=== PATIENT | male | born 1970 | race American Indian/Alaskan Native ===

== ENCOUNTER 2019-07-29 14:12 | Emergency (ER) | payer SELFPAY ==
--- NOTE | 2019-07-29 14:16 | Emergency Department Report ---
Blank Doc - Documentation Documentation: 49-year-old male that presents with penile erection x5 hours. This initial assessment/diagnostic orders/clinical plan/treatment(s) is/are subject to change based on patient's health status, clinical progression and re- assessment by fellow clinical providers in the ED. Further treatment and workup at subsequent clinical providers discretion. Patient/guardians urged not to elope from the ED as their condition may be serious if not clinically assessed and managed. Initial orders include: 1- Patient sent to MAIN for further evaluation and treatment
[2019-07-29] MEDS ORDERED: SODIUM CHLORIDE 0.9% 1000 ML 1,000 ML IV ONE (15:19)
[2019-07-29] MEDS ORDERED: MORPHINE 4 MG/1 ML INJ ONE (15:38)
[2019-07-29] MEDS ORDERED: MORPHINE 4 MG/1 ML INJ IV ONE (15:40)
[2019-07-29] MEDS ORDERED: PSEUDOEPHEDRINE 30 MG TAB PO ONE (16:17)
[2019-07-29] MEDS ORDERED: PHENYLEPHRINE 1 MG, SODIUM CHLORIDE P/F VIAL 10 ML 9.9 ML IJ**NOT IV ONE (16:18)
--- NOTE | 2019-07-29 16:55 | Emergency Department Report ---
ED General Adult HPI - General Chief complaint: Urogenital-Male Stated complaint: PRIAPISM Time Seen by Provider: 07/29/19 14:15 Source: patient Mode of arrival: Ambulatory Limitations: No Limitations - History of Present Illness Initial comments: The patient presents to the emergency department with a chief complaint of priapism after taking over the counter supplement from a local store. Patient states his symptoms started at 10 AM. The patient denies a history of sickle cell anemia or ever having priapism before -: Sudden Severity scale (0 -10): 8 Consistency: constant Improves with: none Worsens with: none Associated Symptoms: denies other symptoms Treatments Prior to Arrival: none - Related Data Home Medications Medication Instructions Recorded Confirmed Last Taken No Known Home Medications [No 07/29/19 07/29/19 Unknown Reported Home Medications] Allergies Allergy/AdvReac Type Severity Reaction Status Date / Time No Known Allergies Allergy Unverified 06/08/14 10:29 ED Review of Systems ROS: Stated complaint: PRIAPISM Other details as noted in HPI Constitutional: denies: chills, fever Eyes: denies: eye pain, eye discharge, vision change ENT: denies: ear pain, throat pain Respiratory: denies: cough, shortness of breath, wheezing Cardiovascular: denies: chest pain, palpitations Endocrine: no symptoms reported Gastrointestinal: denies: abdominal pain, nausea, diarrhea Genitourinary: denies: urgency, dysuria Musculoskeletal: denies: back pain, joint swelling, arthralgia Skin: denies: rash, lesions Neurological: denies: headache, weakness, paresthesias Psychiatric: denies: anxiety, depression Hematological/Lymphatic: denies: easy bleeding, easy bruising ED Past Medical Hx - Past Medical History Previous Medical History?: No - Surgical History Past Surgical History?: No - Social History Smoking Status: Current Every Day Smoker Substance Use Type: Alcohol - Medications Home Medications: Home Medications Medication Instructions Recorded Confirmed Last Taken Type No Known Home Medications [No 07/29/19 07/29/19 Unknown History Reported Home Medications] ED Physical Exam - General Limitations: No Limitations General appearance: alert, in no apparent distress - Head Head exam: Present: atraumatic, normocephalic - Eye Eye exam: Present: normal appearance, PERRL, EOMI - ENT ENT exam: Present: mucous membranes moist - Neck Neck exam: Present: normal inspection - Respiratory Respiratory exam: Present: normal lung sounds bilaterally. Absent: respiratory distress - Cardiovascular Cardiovascular Exam: Present: regular rate, normal rhythm. Absent: systolic murmur, diastolic murmur, rubs, gallop - GI/Abdominal GI/Abdominal exam: Present: soft, normal bowel sounds. Absent: distended, tenderness - Rectal Rectal exam: Present: deferred - exam: Present: other (priapism) - Extremities Exam Extremities exam: Present: normal inspection - Back Exam Back exam: Present: normal inspection - Neurological Exam Neurological exam: Present: alert, oriented X3, CN II-XII intact. Absent: motor sensory deficit - Psychiatric Psychiatric exam: Present: normal affect, normal mood - Skin Skin exam: Present: warm, dry, intact, normal color. Absent: rash ED Course Vital Signs 07/29/19 07/29/19 07/29/19 14:16 14:36 14:37 Temperature 98.5 F 98.2 F Pulse Rate 81 86 Respiratory 20 14 14 Rate Blood Pressure 158/93 145/95 [Right] O2 Sat by Pulse 99 100 98 Oximetry 07/29/19 16:15 Temperature Pulse Rate Respiratory Rate Blood Pressure 160/98 [Right] O2 Sat by Pulse Oximetry - Penile Procedure Consent Obtained: verbal consent Time Out Performed: Yes Indication: priapism management Procedural Sedation: No Sedation/Analgesia: none Priapism Management: phenylephrine injection Complications: none Patient Tolerated Procedure: well Additional Comments: Complete resolution of priapism Critical care attestation.: If time is entered above; I have spent that time in minutes in the direct care of this critically ill patient, excluding procedure time. ED Disposition Clinical Impression: Priapism Disposition: - TO HOME OR SELFCARE Is pt being admited?: No Does the pt Need Aspirin: No Condition: Stable Instructions: Priapism (ED) Additional Instructions: return if worse Referrals: CANDIDO ANDERSON MD [Primary Care Provider] - 3-5 Days [facility] [Provider Group] - 3-5 Days [facility] [Provider Group] - 3-5 Days JAIME GONZALEZ MD [Staff Physician] - 3-5 Days Time of Disposition: 17:27
[2019-07-29 16:59] VITALS: BP 160/98
== END 2019-07-29 17:53 | disposition home or self-care (01) ==
LOC: ED 14:12
DX: N48.30 Priapism, unspecified (principal); F17.200 Nicotine dependence, unspecified, uncomplicated
CPT/HCPCS: 54220; 96374; 99282; J2270; J2370; J7030

== ENCOUNTER 2021-12-06 21:42 | Inpatient (IN) | payer SELFPAY ==
[2021-12-06] MEDS ORDERED: ASPIRIN 325 MG TAB PO ONE (22:17)
--- NOTE | 2021-12-06 22:31 | Emergency Department Report ---
<OMAIRA SUTTON - Last Filed: 12/06/21 22:26> ED Chest Pain HPI - General Chief Complaint: Chest Pain Stated Complaint: CHEST PAIN Time Seen by Provider: 12/06/21 22:08 Source: patient Mode of arrival: Ambulatory Limitations: No Limitations - History of Present Illness Initial Comments: 51-year-old -[place] male smoker presents emerged department complaining of sudden onset of substernal chest discomfort of unknown etiology while he was sitting on the couch reading in no acute distress. Reports no hemoptysis or hematemesis medic easy, no fever, chills, sweats. No coughing, no congestion, no coryza, no trauma no previous symptoms resembling this issue MD Complaint: chest pain -: Sudden, minutes(s) (30) Onset: during rest Pain Location: substernal Pain Radiation: none Severity: mild Quality: aching, sharp Consistency: constant Improves With: nothing Worsens With: nothing re: denies: nausea, vomting, diaphoresis, dyspnea, sense of impending doom Other Symptoms: denies: cough, fever, syncope, rash, acid taste in mouth, leg swelling, palpitations, burping, other Treatments Prior to Arrival: none - Related Data Previous Rx's Medication Instructions Recorded Last Taken Type amLODIPine [Norvasc] 5 mg PO DAILY #30 tab 12/07/21 Unknown Rx Allergies Allergy/AdvReac Type Severity Reaction Status Date / Time No Known Allergies Allergy Unverified 06/08/14 10:29 Heart Score - HEART Score History: Slightly suspicious EKG: Normal Age: 45-65 Risk factors: > 3 risk factors or hx of atherosclerotic disease Troponin: < normal limit HEART Score: 3 ED Review of Systems Comment: All other systems reviewed and negative ED Past Medical Hx - Social History Smoking Status: Current Every Day Smoker Substance Use Type: Alcohol - Medications Home Medications: Home Medications Medication Instructions Recorded Confirmed Last Taken Type amLODIPine [Norvasc] 5 mg PO DAILY #30 tab 12/07/21 Unknown Rx ED Physical Exam - General Limitations: No Limitations General appearance: alert, in no apparent distress - Head Head exam: Present: atraumatic, normocephalic - Eye Eye exam: Present: normal appearance, PERRL, EOMI. Absent: scleral icterus, conjunctival injection, periorbital swelling, periorbital tenderness Pupils: Present: normal accommodation - ENT ENT exam: Present: normal exam, normal orophraynx, mucous membranes moist, TM's normal bilaterally - Neck Neck exam: Present: normal inspection, full ROM - Respiratory Respiratory exam: Present: normal lung sounds bilaterally. Absent: respiratory distress, wheezes, rales, chest wall tenderness, accessory muscle use - Cardiovascular Cardiovascular Exam: Present: regular rate, normal rhythm. Absent: systolic murmur, diastolic murmur, rubs, gallop - GI/Abdominal GI/Abdominal exam: Present: soft, normal bowel sounds. Absent: tenderness, guarding, rebound, organomegaly, mass, bruit - Rectal Rectal exam: Present: deferred - Extremities Exam Extremities exam: Present: normal inspection, full ROM, normal capillary refill - Back Exam Back exam: Present: normal inspection, CVA tenderness (R), CVA tenderness (L) - Neurological Exam Neurological exam: Present: alert, oriented X3, CN II-XII intact, normal gait - Psychiatric Psychiatric exam: Present: normal affect, normal mood - Skin Skin exam: Present: warm, dry, intact, normal color. Absent: rash ED Disposition Clinical Impression: Malignant hypertension, Non-STEMI (non-ST elevated myocardial infarction) Disposition: ADMITTED INPATIENT Condition: Stable Instructions: Chest Pain (ED), Hypertension (ED) Prescriptions: amLODIPine [Norvasc] 5 mg PO DAILY #30 tab Referrals: AAKSH VERA MD [Primary Care Provider] - 3-5 Days <CHE CHEN - Last Filed: 12/07/21 05:44> Heart Score - HEART Score History: Moderately suspicious EKG: Non-specific Age: 45-65 Risk factors: > 3 risk factors or hx of atherosclerotic disease Troponin: > 3x normal limit HEART Score: 7 - EKG Read Time Time EKG Completed: 21:52 EKG Read Time: 21:55 - Critical Actions Critical Actions: >7 pts:50-65% risk of adverse cardiac event. Early invasive measures ED Review of Systems ROS: Stated complaint: CHEST PAIN Other details as noted in HPI ED Course Vital Signs 12/06/21 12/06/21 12/07/21 22:17 22:57 00:41 Temperature 98.1 F Pulse Rate 87 74 Respiratory 18 20 Rate Blood Pressure 176/121 Blood Pressure 166/109 [Right] O2 Sat by Pulse 99 100 100 Oximetry ED Medical Decision Making - Lab Data Result diagrams: 12/06/21 22:30 12/06/21 22:30 - EKG Data -: EKG Interpreted by Me EKG shows normal: sinus rhythm Rate: normal - EKG Data Interpretation: no acute changes - Radiology Data Radiology results: report reviewed - Medical Decision Making 51-year-old -[place] male smoker presents emerged department complaining of sudden onset of substernal chest discomfort of unknown etiology while he was sitting on the couch reading in no acute distress. Reports no hemoptysis or hematemesis medic easy, no fever, chills, sweats. No coughing, no congestion, no coryza, no trauma no previous symptoms resembling this issue Patient found to have a blood pressure of 180/111. Patient is not on any blood pressure medication. Patient received nitroglycerin and Lopressor. Patient stated that he is feeling much better. Labs reviewed and is unremarkable including a negative first set of troponin however the second troponin came back as 1.48. Chest x-ray is unremarkable. I started patient on Heparin drip. I discussed the patient with Dr. Monge, chrome plater on-call he advised to admit patient to medical service and he will follow up with the patient. I discussed the patient with Dr. Hopkins, he agreed to admit the patient to medical service for further management. Critical Care Time: Yes Critical care time in (mins) excluding proc time.: 35 Critical care attestation.: If time is entered above; I have spent that time in minutes in the direct care of this critically ill patient, excluding procedure time. ED Disposition Is pt being admited?: Yes
[2021-12-06 22:52] LABS: Hematocrit 38.5 % (35.5-45.6); Mean Corpuscular HGB Conc 34 % (32-34); Mean Corpuscular Volume 90 fl (84-94); Platelet Count 274 K/mm3 (140-440); Red Blood Count 4.28 M/mm3 (3.65-5.03); Red Cell Distribution Width 13.9 % (13.2-15.2)
[2021-12-06 23:06] LABS: Alanine Aminotransferase 19 units/L (7-56); Albumin 3.5 g/dL (3.9-5); BUN/Creatinine Ratio 16; Blood Urea Nitrogen 13 mg/dL (9-20); Calcium 8.3 mg/dL (8.4-10.2); Hemolysis Index 4
[2021-12-06] MEDS ORDERED: NITROGLYCERIN 0.4 MG TAB SUBL SL ONE (23:08)
--- NOTE | 2021-12-06 23:15 | XRay Report ---
CHEST 2 VIEWS INDICATION / CLINICAL INFORMATION: Chest Pain. COMPARISON: None available. FINDINGS: SUPPORT DEVICES: None. HEART / MEDIASTINUM: No significant abnormality. LUNGS / PLEURA: No significant pulmonary or pleural abnormality. No pneumothorax. ADDITIONAL FINDINGS: No significant additional findings. IMPRESSION: 1. No active cardiopulmonary disease. Signer Name: Juanjose Mendoza II, MD Signed: 12/06/2021 11:10 PM Workstation Name: [id number]
[2021-12-06] MEDS: NITROGLYCERIN 0.4 MG TAB SUBL SL ONE (23:43)
[2021-12-06] MEDS: METOPROLOL TARTRATE 5 MG/5 ML INJ IV ONE (23:51)
[2021-12-07] MEDS: ONDANSETRON 4 MG/2 ML INJ IV ONE ×2 (01:45→20:01)
[2021-12-07] MEDS: MORPHINE 4 MG/1 ML INJ IV ONE ×2 (01:45→20:00)
[2021-12-07 01:57] LABS: Basophils % (Manual) 0 % (0.0-1.8); Total Cells Counted 100
[2021-12-07 01:59] LABS: Platelet Estimate Consistent w Auto; RBC Morphology Normal
[2021-12-07] MEDS ORDERED: METOPROLOL TARTRATE 5 MG/5 ML INJ IV ONE (05:28)
[2021-12-07 05:42] LABS: Chol/HDL Ratio 3.16 %
[2021-12-07] MEDS ORDERED: HYDROmorphone 1 MG/1 ML INJ IV PRN (05:44)
[2021-12-07] MEDS ORDERED: NITROGLYCERIN 0.4 MG TAB SUBL SL PRN (05:44)
--- NOTE | 2021-12-07 05:53 | History and Physical Report ---
History of Present Illness Date of examination: 12/07/21 Date of admission: 12/07/21 Chief complaint: Chest pain History of present illness: 51-year-old male with history of smoking and alcohol abuse was brought to the emergency room because of sudden onset of substernal chest discomfort which is sharp 10/10 constant while he was sitting on the couch reading in no acute distress. Reports no hemoptysis or hematemesis medic easy, no fever, chills, sweats. No coughing, no congestion, no coryza, no trauma no previous symptoms resembling this issue Patient found to have a blood pressure of 180/111. Patient is not on any blood pressure medication. Patient received nitroglycerin and Lopressor. Patient stated that he is feeling much better. Labs reviewed and is unremarkable including a negative first set of troponin however the second troponin came back as 1.48. Chest x-ray is unremarkable. Case discussed the patient with Dr. Monge, joinery setter out on-call he advised to admit patient to medical service and he will follow up with the patient. We als o started on heparin drip Past History Past Medical History: hypertension, other (High blood pressure) Social history: smoking, alcohol abuse Medications and Allergies Allergies Allergy/AdvReac Type Severity Reaction Status Date / Time No Known Allergies Allergy Unverified 06/08/14 10:29 Home Medications Medication Instructions Recorded Confirmed Last Taken Type amLODIPine [Norvasc] 5 mg PO DAILY #30 tab 12/07/21 Unknown Rx Active Meds: Active Medications Heparin Sodium/Sodium Chloride (Heparin/ 0.45% Nacl-25,000 Unit/500 Ml) 25,000 unit in 500 mls @ 67.5 mls/hr IV TITRATE CIELO; Protocol Review of Systems Cardiovascular: chest pain, shortness of breath, dyspnea on exertion Exam - Constitutional Vitals: Temp Pulse Resp BP Pulse Ox 98.1 F 74 20 166/109 100 12/06/21 22:17 12/07/21 00:41 12/07/21 00:41 12/07/21 00:41 12/07/21 00:41 General appearance: Present: no acute distress, well-nourished - EENT Eyes: Present: PERRL ENT: hearing intact, clear oral mucosa - Neck Neck: Present: supple, normal ROM - Respiratory Respiratory effort: normal Respiratory: bilateral: diminished - Cardiovascular Heart Sounds: Present: S1 & S2. Absent: rub, click - Extremities Extremities: pulses symmetrical, No edema Peripheral Pulses: within normal limits - Abdominal General gastrointestinal: Present: soft, non-tender, non-distended, normal bowel sounds Male genitourinary: Present: normal - Integumentary Integumentary: Present: clear, warm, dry - Musculoskeletal Musculoskeletal: gait normal, strength equal bilaterally - Psychiatric Psychiatric: appropriate mood/affect, intact judgment & insight - Neurologic Neurologic: CNII-XII intact, moves all extremities HEART Score - HEART Score EKG: Non-specific Age: 45-65 Risk factors: > 3 risk factors or hx of atherosclerotic disease Troponin: Troponin T 1.480 ng/mL (0.00-0.029) H* D 12/07/21 04:28 Troponin: > 3x normal limit - Critical Actions Critical Actions: >7 pts:50-65% risk of adverse cardiac event. Early invasive measures Results - Labs CBC & Chem 7: 12/06/21 22:30 12/06/21 22:30 Labs: Laboratory Last Values WBC 3.4 K/mm3 (4.5-11.0) L 12/06/21 22:30 RBC 4.28 M/mm3 (3.65-5.03) 12/06/21 22:30 Hgb 13.0 gm/dl (11.8-15.2) 12/06/21 22:30 Hct 38.5 % (35.5-45.6) 12/06/21 22:30 MCV 90 fl (84-94) 12/06/21 22:30 MCH 31 pg (28-32) 12/06/21 22:30 MCHC 34 % (32-34) 12/06/21 22:30 RDW 13.9 % (13.2-15.2) 12/06/21 22:30 Plt Count 274 K/mm3 (140-440) 12/06/21 22:30 Lymph % (Auto) Automatic Pad Making Machine Operator 12/06/21 22:30 Baso % (Auto) Automatic Pad Making Machine Operator 12/06/21 22:30 Add Manual Diff Complete 12/06/21 22:30 Total Counted 100 12/06/21 22:30 Seg Neutrophils % Automatic Pad Making Machine Operator 12/06/21 22:30 Seg Neuts % (Manual) 33.0 % (40.0-70.0) L 12/06/21 22:30 Band Neutrophils % 0 % 12/06/21 22:30 Lymphocytes % (Manual) 55.0 % (13.4-35.0) H 12/06/21 22:30 Reactive Lymphs % (Man) 0 % 12/06/21 22:30 Monocytes % (Manual) 8.0 % (0.0-7.3) H 12/06/21 22:30 Eosinophils % (Manual) 4.0 % (0.0-4.3) 12/06/21 22:30 Basophils % (Manual) 0 % (0.0-1.8) 12/06/21 22:30 Metamyelocytes % 0 % 12/06/21 22:30 Myelocytes % 0 % 12/06/21 22:30 Promyelocytes % 0 % 12/06/21 22:30 Blast Cells % 0 % 12/06/21 22:30 Nucleated RBC % Not Reportable 12/06/21 22:30 Seg Neutrophils # Man 1.1 K/mm3 (1.8-7.7) L 12/06/21 22:30 Band Neutrophils # 0.0 K/mm3 12/06/21 22:30 Lymphocytes # (Manual) 1.9 K/mm3 (1.2-5.4) 12/06/21 22:30 Abs React Lymphs (Man) 0.0 K/mm3 12/06/21 22:30 Monocytes # (Manual) 0.3 K/mm3 (0.0-0.8) 12/06/21 22:30 Eosinophils # (Manual) 0.1 K/mm3 (0.0-0.4) 12/06/21 22:30 Basophils # (Manual) 0.0 K/mm3 (0.0-0.1) 12/06/21 22:30 Metamyelocytes # 0.0 K/mm3 12/06/21 22:30 Myelocytes # 0.0 K/mm3 12/06/21 22:30 Promyelocytes # 0.0 K/mm3 12/06/21 22:30 Blast Cells # 0.0 K/mm3 12/06/21 22:30 WBC Morphology Not Reportable 12/06/21 22:30 Hypersegmented Neuts Not Reportable 12/06/21 22:30 Hyposegmented Neuts Not Reportable 12/06/21 22:30 Hypogranular Neuts Not Reportable 12/06/21 22:30 Smudge Cells Not Reportable 12/06/21 22:30 Toxic Granulation Not Reportable 12/06/21 22:30 Toxic Vacuolation Not Reportable 12/06/21 22:30 Dohle Bodies Not Reportable 12/06/21 22:30 Pelger-Huet Anomaly Not Reportable 12/06/21 22:30 Siomara Rods Not Reportable 12/06/21 22:30 Platelet Estimate Consistent w auto 12/06/21 22:30 Clumped Platelets Not Reportable 12/06/21 22:30 Plt Clumps, EDTA Not Reportable 12/06/21 22:30 Large Platelets Not Reportable 12/06/21 22:30 Giant Platelets Not Reportable 12/06/21 22:30 Platelet Satelliting Not Reportable 12/06/21 22:30 Plt Morphology Comment Not Reportable 12/06/21 22:30 RBC Morphology Normal 12/06/21 22:30 Dimorphic RBCs Not Reportable 12/06/21 22:30 Polychromasia Not Reportable 12/06/21 22:30 Hypochromasia Not Reportable 12/06/21 22:30 Poikilocytosis Not Reportable 12/06/21 22:30 Anisocytosis Not Reportable 12/06/21 22:30 Microcytosis Not Reportable 12/06/21 22:30 Macrocytosis Not Reportable 12/06/21 22:30 Spherocytes Not Reportable 12/06/21 22:30 Pappenheimer Bodies Not Reportable 12/06/21 22:30 Sickle Cells Not Reportable 12/06/21 22:30 Target Cells Not Reportable 12/06/21 22:30 Tear Drop Cells Not Reportable 12/06/21 22:30 Ovalocytes Not Reportable 12/06/21 22:30 Helmet Cells Not Reportable 12/06/21 22:30 Lam-Magna Bodies Not Reportable 12/06/21 22:30 [place] Rings Not Reportable 12/06/21 22:30 Savanah Cells Not Reportable 12/06/21 22:30 Bite Cells Not Reportable 12/06/21 22:30 Crenated Cell Not Reportable 12/06/21 22:30 Elliptocytes Not Reportable 12/06/21 22:30 Acanthocytes (Spur) Not Reportable 12/06/21 22:30 Rouleaux Not Reportable 12/06/21 22:30 Hemoglobin C Crystals Not Reportable 12/06/21 22:30 Schistocytes Not Reportable 12/06/21 22:30 Malaria parasites Not Reportable 12/06/21 22:30 Farhan Bodies Not Reportable 12/06/21 22:30 Hem Pathologist Commnt No 12/06/21 22:30 Sodium 137 mmol/L (137-145) 12/06/21 22:30 Potassium 4.2 mmol/L (3.6-5.0) 12/06/21 22:30 Chloride 101.7 mmol/L (98-107) 12/06/21 22:30 Carbon Dioxide 28 mmol/L (22-30) 12/06/21 22:30 Anion Gap 12 mmol/L 12/06/21 22:30 BUN 13 mg/dL (9-20) 12/06/21 22:30 Creatinine 0.8 mg/dL (0.8-1.3) 12/06/21 22:30 Estimated GFR > 60 ml/min 12/06/21 22:30 BUN/Creatinine Ratio 16 % 12/06/21 22:30 Glucose 108 mg/dL (75-100) H 12/06/21 22:30 Calcium 8.3 mg/dL (8.4-10.2) L 12/06/21 22:30 Total Bilirubin 0.30 mg/dL (0.1-1.2) 12/06/21 22:30 AST 17 units/L (5-40) 12/06/21 22:30 ALT 19 units/L (7-56) 12/06/21 22:30 Alkaline Phosphatase 57 units/L (35-129) 12/06/21 22:30 Troponin T 1.480 ng/mL (0.00-0.029) H* D 12/07/21 04:28 Total Protein 5.6 g/dL (6.3-8.2) L 12/06/21 22:30 Albumin 3.5 g/dL (3.9-5) L 12/06/21 22:30 Albumin/Globulin Ratio 1.7 % 12/06/21 22:30 Triglycerides 63 mg/dL (2-149) 12/07/21 04:28 Cholesterol 168 mg/dL (50-199) 12/07/21 04:28 LDL Cholesterol Direct 107 mg/dL (50-130) 12/07/21 04:28 HDL Cholesterol 53 mg/dL (40-59) 12/07/21 04:28 Cholesterol/HDL Ratio 3.16 % 12/07/21 04:28 Lipase 15 units/L (13-60) 12/06/21 22:30 - Imaging and Cardiology Chest x-ray: report reviewed Assessment and Plan VTE prophylaxis?: Chemical Plan of care discussed with patient/family: Yes - Patient Problems (1) Non-STEMI (non-ST elevated myocardial infarction) Current Visit: Yes Status: Acute Plan to address problem: Admit the patient to the medical telemetry. Aspirin 325 mg p.o. daily. Lipitor 80 mg p.o. daily. Heparin drip as per protocol. Serial cardiac enzymes. Echocardiogram. Cardiology evaluation (2) Malignant hypertension Current Visit: Yes Status: Acute Plan to address problem: Hydralazine 10 mg IV every 6 hours as needed. Amlodipine 5 mg p.o. daily. We will monitor the blood pressure closely (3) Tobacco abuse Current Visit: Yes Status: Acute Plan to address problem: We counseled the patient regarding quitting smoking. We will put nicotine patch if needed (4) Alcohol abuse Current Visit: Yes Status: Acute Plan to address problem: Patient counseled regarding quit drinking. (5) DVT prophylaxis Current Visit: Yes Status: Acute Plan to address problem: Heparin drip as per protocol for DVT prophylaxis. Protonix 40 mg p.o. daily for GI prophylaxis. Patient is a full code
[2021-12-07] MEDS ORDERED: hydrALAZINE 20 MG/1 ML INJ IV PRN (05:54)
[2021-12-07 05:59] LABS: INR 0.82 (0.87-1.13)
[2021-12-07 06:00] LABS: Partial Thromboplastin Time 28.2 Sec. (24.2-36.6)
[2021-12-07] MEDS ORDERED: HEPARIN/ 0.45% NACL DRIP 25,000 UNIT/500 ML BAG IV SCH (06:00)
[2021-12-07] MEDS: MORPHINE 2 MG/1 ML INJ IV PRN ×3 (08:14→22:09)
[2021-12-07] MEDS: PANTOPRAZOLE 40 MG TAB PO SCH (08:14)
[2021-12-07 08:48] LABS: Creatine Kinase MB 105.1 ng/mL (0.0-4.0)
--- NOTE | 2021-12-07 09:24 | Electrocardiograph Report ---
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
--- NOTE | 2021-12-07 09:26 | Electrocardiograph Report ---
[facility] Test Date: 2021-12-07 Test Time: 05:29:37 Pat Name: DUSTY BURNS Department: Room: [place] [address] Gender: M Quartz Cutter: ARPITA : 1970 Requested By: OMAIRA SUTTON Order Number: [id number] Reading MD: Amanuel Trinidad Measurements Intervals [place] Rate: 82 P: 75 MI: 217 QRS: 4 QRSD: 95 T: -8 QT: 438 QTc: 513 Interpretive Statements Sinus rhythm Prolonged MI interval Probable left ventricular hypertrophy nonspecific st-t Compared to ECG 12/06/2021 21:52:27 No significant changes Electronically Signed On 12-07-2021 9:25:59 EST by Amanuel Trinidad
[2021-12-07] MEDS ORDERED: SODIUM CHLORIDE 0.9% 500 ML 500 ML IV SCH (11:00)
--- NOTE | 2021-12-07 12:17 | Consultation ---
History of Present Illness Consult date: 12/07/21 Requesting physician: CHE CHNE Consult reason: other (NSTEMI) History of present illness: Patient is a 51-year-old male with a past medical history of hypertension and tobacco use who came to the ED with a complaint of chest pain x1 day. Patient reports that yesterday while at home studying he suddenly developed chest pain which he described as tightness that was located centrally in his chest. Patient reports he has had previous episodes of slight chest pain in the past however they only lasted several seconds whereas this chest pain has not gone away. Of note in the ED patient was found to have blood pressure of 180/111. Patient states that in the past he was prescribed blood pressure medication he states he is not sure what it was. He states he did not take it because when taking it he started to lose sight in one of his eyes. Patient denies any complaints of shortness of breath, nausea, vomiting, diaphoresis, palpitations, or lightheadedness. Patient is previously unknown to our practice. Cardiology is consulted for NSTEMI. Past History Past Medical History: hypertension, other (High blood pressure) Social history: smoking, alcohol abuse Medications and Allergies Allergies Allergy/AdvReac Type Severity Reaction Status Date / Time No Known Allergies Allergy Verified 12/07/21 09:50 Home Medications Medication Instructions Recorded Confirmed Last Taken Type amLODIPine [Norvasc] 5 mg PO DAILY #30 tab 12/07/21 Unknown Rx Active Meds: Active Medications Aspirin (Aspirin Ec 325 Mg Tab) 325 mg PO QDAY CIELO Atorvastatin Calcium (Atorvastatin 40 Mg Tab) 80 mg PO QHS CIELO Hydromorphone HCl (Hydromorphone 1 Mg/1 Ml Inj) 0.5 mg IV Q3H PRN PRN Reason: Pain , Severe (7-10) Heparin Sodium/Sodium Chloride (Heparin/ 0.45% Nacl-25,000 Unit/500 Ml) 25,000 unit in 500 mls @ 20 mls/hr IV TITRATE CIELO; Protocol Stop: 12/08/21 05:00 Last Admin: 12/07/21 09:55 Dose: 1,000 units/hr, 20 mls/hr Sodium Chloride (Nacl 0.9% 500 Ml) 500 mls @ 50 mls/hr IV DIRECT CIELO Stop: 12/07/21 20:59 Losartan Potassium (Losartan 50 Mg Tab) 50 mg PO QDAY [facility] Metoprolol Tartrate (Metoprolol Tartrate 50 Mg Tab) 50 mg PO BID [facility] Morphine Sulfate (Morphine 2 Mg/1 Ml Inj) 2 mg IV Q4H PRN PRN Reason: Pain, Moderate (4-6) Last Admin: 12/07/21 08:14 Dose: 2 mg Nitroglycerin (Nitroglycerin 0.4 Mg Tab Subl) 0.4 mg SL .Q5MIN PRN PRN Reason: Chest Pain Pantoprazole Sodium (Pantoprazole 40 Mg Tab) 40 mg PO QDAC [facility] Last Admin: 12/07/21 08:14 Dose: 40 mg Review of Systems Constitutional: no weight loss, no weight gain, no fever, no chills Ears, nose, mouth and throat: no nasal discharge, no sinus pressure, no sinus pain Cardiovascular: chest pain, no orthopnea, no palpitations, no edema, no shortness of breath, no dyspnea on exertion Respiratory: no shortness of breath, no dyspnea on exertion Gastrointestinal: no abdominal pain, no nausea, no vomiting Musculoskeletal: no neck pain, no shooting arm pain, no arm numbness/tingling Integumentary: no rash, no pruritis, no redness Neurological: no head injury, no transient paralysis Psychiatric: no anxiety, no memory loss Endocrine: no cold intolerance, no heat intolerance Hematologic/Lymphatic: no easy bruising, no easy bleeding Physical Examination Vital Signs Temp Pulse Resp BP Pulse Ox 98.1 F 87 18 176/121 99 12/06/21 22:17 12/06/21 22:17 12/06/21 22:17 12/06/21 22:17 12/06/21 22:17 General appearance: no acute distress HEENT: Positive: PERRL Neck: Positive: trachea midline Cardiac: Positive: Reg Rate and Rhythm Lungs: Positive: Normal Breath Sounds Neuro: Positive: Grossly Intact Abdomen: Positive: Soft, Active Bowel Sounds Skin: Negative: Rash, Suspicious Lesions, Ulceration Extremities: Present: upper extr. pulses. Absent: edema Results 12/06/21 22:30 12/06/21 22:30 Cardiac Enzymes 12/06/21 12/07/21 Range/Units 22:30 07:59 AST 17 (5-40) units/L CK-MB (CK-2) 105.1 H (0.0-4.0) ng/mL Coagulation 12/07/21 Range/Units 05:34 PT 12.2 (12.2-14.9) Sec. INR 0.82 L (0.87-1.13) APTT 28.2 (24.2-36.6) Sec. Lipids 12/07/21 Range/Units 04:28 Triglycerides 63 (2-149) mg/dL Cholesterol 168 (50-199) mg/dL HDL Cholesterol 53 (40-59) mg/dL Cholesterol/HDL Ratio 3.16 % CBC 12/06/21 Range/Units 22:30 WBC 3.4 L (4.5-11.0) K/mm3 RBC 4.28 (3.65-5.03) M/mm3 Hgb 13.0 (11.8-15.2) gm/dl Hct 38.5 (35.5-45.6) % Plt Count 274 (140-440) K/mm3 Comprehensive Metabolic Panel 12/06/21 Range/Units 22:30 Sodium 137 (137-145) mmol/L Potassium 4.2 (3.6-5.0) mmol/L Chloride 101.7 (98-107) mmol/L Carbon Dioxide 28 (22-30) mmol/L BUN 13 (9-20) mg/dL Creatinine 0.8 (0.8-1.3) mg/dL Glucose 108 H (75-100) mg/dL Calcium 8.3 L (8.4-10.2) mg/dL AST 17 (5-40) units/L ALT 19 (7-56) units/L Alkaline Phosphatase 57 (35-129) units/L Total Protein 5.6 L (6.3-8.2) g/dL Albumin 3.5 L (3.9-5) g/dL - Imaging and Cardiology Echo: pending Cardiac cath: pending EKG interpretations - Telemetry EKG Rhythm: Sinus Rhythm - EKG Sinus rhythms and dysrhythmias: sinus rhythm Chamber hypertrophy or enlargement: left ventricular hypertro Assessment and Plan Patient is a 51-year-old male with a past medical history of hypertension and tobacco use who came to the ED with a complaint of chest pain x1 day NSTEMI Hypertensive urgency History of tobacco use Medical noncompliance Plan: EKG shows sinus rhythm 82 prolonged DE interval. Probable LVH with nonspecific ST-T abnormalities. No acute ischemic changes. Troponins noted to be elevated 1.4->1.2 Patient for cardiac cath in the a.m. N.p.o. after midnight Continue heparin drip. Stop heparin at 5 AM Initiate metoprolol 50 mg p.o. twice daily and losartan 50 mg p.o. daily for blood pressure control Continue aspirin and Lipitor Echo pending Plan of care discussed with patient to who verbalized understanding and agreement with plan Patient seen in conjunction with Dr. Trinidad who agrees with this plan of care - Patient Problems (1) Malignant hypertension Current Visit: Yes Status: Acute (2) Non-STEMI (non-ST elevated myocardial infarction) Current Visit: Yes Status: Acute (3) Tobacco abuse Current Visit: Yes Status: Acute
[2021-12-07] MEDS: ASPIRIN EC 325 MG TAB PO SCH (16:51)
[2021-12-07] MEDS: METOPROLOL TARTRATE 50 MG TAB PO SCH ×2 (16:51→21:57)
[2021-12-07] MEDS: NITROGLYCERIN 2% OINT 1 GM TP SCH (16:52)
[2021-12-07] MEDS: LOSARTAN 50 MG TAB PO SCH (16:52)
--- NOTE | 2021-12-07 18:30 | Progress Note ---
Assessment and Plan Assessment and plan: --Non-STEMI (non-ST elevated myocardial infarction) Current Visit: Yes Status: Acute Aspirin 325 mg p.o. daily. Lipitor 80 mg p.o. daily. Beta-blockers, RAJANI inhibitors, morphine, Heparin drip as per protocol. Serial cardiac enzymes. Serial EKG Echocardiogram for LV function ejection fraction Cardiology evaluation and recommendations noted and appreciated Possible left heart catheterization tomorrow N.p.o. status --Malignant hypertension Current Visit: Yes Status: Acute Beta-blockers , RAJANI inhibitors , nitrates As needed IV hydralazine Closely monitor blood pressures adjust medications --Ongoing tobacco use Current Visit: Yes Status: Chronic smoking cessation counseling done Advised to quit tobacco use, risks and consequences explained in detail Encouraged to quit tobacco use, discussed different options Including nicotine patch as needed, --History of alcohol abuse Current Visit: Yes Status: Chronic Strongly advised to quit alcohol intake Monitor for any withdrawal symptoms And treat with CIWA as needed --Obesity; BMI 31.5 Advised diet modification, exercise as tolerated And weight reduction when medically stable Patient verbalized understanding --Advance care planning;+ 32 minutes Discussed patient's condition, diagnosis discussed, discussed abnormal tests And reports, discussed treatment plan, I discussed with the patient cardiology evaluation As well as recommendations, I discussed possible left heart cath, also discussed smoking cessation Advised to quit alcohol intake, discussed discharge planning Patient verbalized understanding DVT prophylaxis Current Visit: Yes Status: Acute Patient is already on heparin drip We will closely monitor patient and adjust the management as needed Plan of care reviewed with the patient and his nurse Prolonged care, spent 35 minutes History Interval history: I have seen and examined the patient this morning when patient was in ER awaiting bed assignment Patient's chart and medications, tests and reports reviewed Patient was admitted with chest pain, positive cardiac enzymes, non-ST elevation MA Patient has multiple risk factors Feels slightly better at the time of my evaluation Vital signs reviewed Hospitalist Physical - Constitutional Vitals: Temp Pulse Resp BP Pulse Ox 98.0 F 89 18 181/105 97 12/07/21 16:37 12/07/21 16:52 12/07/21 16:37 12/07/21 16:37 12/07/21 16:37 General appearance: Present: no acute distress, well-nourished, obese - EENT Eyes: Present: PERRL, EOM intact - Neck Neck: Present: supple, normal ROM - Respiratory Respiratory effort: normal Respiratory: bilateral: diminished, negative: rales, rhonchi, wheezing - Cardiovascular Rhythm: regular Heart Sounds: Present: S1 & S2 - Extremities Extremities: no ischemia, No edema - Abdominal General gastrointestinal: soft, non-tender, non-distended, normal bowel sounds - Integumentary Integumentary: Present: clear, warm - Psychiatric Psychiatric: appropriate mood/affect, cooperative - Neurologic Neurologic: CNII-XII intact, moves all extremities HEART Score - HEART Score EKG: Non-specific Age: 45-65 Risk factors: > 3 risk factors or hx of atherosclerotic disease Troponin: Troponin T 1.210 ng/mL (0.00-0.029) H* 12/07/21 07:59 Troponin: > 3x normal limit - Critical Actions Critical Actions: >7 pts:50-65% risk of adverse cardiac event. Early invasive measures Results - Labs CBC & Chem 7: 12/06/21 22:30 12/06/21 22:30 Labs: Laboratory Last Values WBC 3.4 K/mm3 (4.5-11.0) L 12/06/21 22:30 RBC 4.28 M/mm3 (3.65-5.03) 12/06/21 22:30 Hgb 13.0 gm/dl (11.8-15.2) 12/06/21 22:30 Hct 38.5 % (35.5-45.6) 12/06/21 22:30 MCV 90 fl (84-94) 12/06/21 22:30 MCH 31 pg (28-32) 12/06/21 22:30 MCHC 34 % (32-34) 12/06/21 22:30 RDW 13.9 % (13.2-15.2) 12/06/21 22:30 Plt Count 274 K/mm3 (140-440) 12/06/21 22:30 Lymph % (Auto) Saw Man 12/06/21 22:30 Baso % (Auto) Saw Man 12/06/21 22:30 Add Manual Diff Complete 12/06/21 22:30 Total Counted 100 12/06/21 22:30 Seg Neutrophils % Saw Man 12/06/21 22:30 Seg Neuts % (Manual) 33.0 % (40.0-70.0) L 12/06/21 22:30 Band Neutrophils % 0 % 12/06/21 22:30 Lymphocytes % (Manual) 55.0 % (13.4-35.0) H 12/06/21 22:30 Reactive Lymphs % (Man) 0 % 12/06/21 22:30 Monocytes % (Manual) 8.0 % (0.0-7.3) H 12/06/21 22:30 Eosinophils % (Manual) 4.0 % (0.0-4.3) 12/06/21 22:30 Basophils % (Manual) 0 % (0.0-1.8) 12/06/21 22:30 Metamyelocytes % 0 % 12/06/21 22:30 Myelocytes % 0 % 12/06/21 22: Promyelocytes % 0 % 12/06/21 22:30 Blast Cells % 0 % 12/06/21 22: Nucleated RBC % Not Reportable 12/06/21 22:30 Seg Neutrophils # Man 1.1 K/mm3 (1.8-7.7) L 12/06/21 22:30 Band Neutrophils # 0.0 K/mm3 12/06/21 22:30 Lymphocytes # (Manual) 1.9 K/mm3 (1.2-5.4) 12/06/21 22:30 Abs React Lymphs (Man) 0.0 K/mm3 12/06/21:30 Monocytes # (Manual) 0.3 K/mm3 (0.0-0.8) 12/06/21 22:30 Eosinophils # (Manual) 0.1 K/mm3 (0.0-0.4) 12/06/21:30 Basophils # (Manual) 0.0 K/mm3 (0.0-0.1) 12/06/21 22:30 Metamyelocytes # 0.0 K/mm3 12/06/21 22:30 Myelocytes # 0.0 K/mm3 12/06/21 22:30 Promyelocytes # 0.0 K/mm3 12/06/21 22:30 Blast Cells # 0.0 K/mm3 12/06/21 22:30 WBC Morphology Not Reportable 12/06/21 22:30 Hypersegmented Neuts Not Reportable 12/06/21 22:30 Hyposegmented Neuts Not Reportable 12/06/21 22:30 Hypogranular Neuts Not Reportable 12/06/21 22:30 Smudge Cells Not Reportable 12/06/21 22:30 Toxic Granulation Not Reportable 12/06/21 22:30 Toxic Vacuolation Not Reportable 12/06/21 22:30 Dohle Bodies Not Reportable 12/06/21 22:30 Pelger-Huet Anomaly Not Reportable 12/06/21 22:30 Siomara Rods Not Reportable 12/06/21 22:30 Platelet Estimate Consistent w auto 12/06/21 22:30 Clumped Platelets Not Reportable 12/06/21 22:30 Plt Clumps, EDTA Not Reportable 12/06/21 22:30 Large Platelets Not Reportable 12/06/21 22:30 Giant Platelets Not Reportable 12/06/21 22:30 Platelet Satelliting Not Reportable 12/06/21 22:30 Plt Morphology Comment Not Reportable 12/06/21 22:30 RBC Morphology Normal 12/06/21 22:30 Dimorphic RBCs Not Reportable 12/06/21 22:30 Polychromasia Not Reportable 12/06/21 22:30 Hypochromasia Not Reportable 12/06/21 22:30 Poikilocytosis Not Reportable 12/06/21 22:30 Anisocytosis Not Reportable 12/06/21 22:30 Microcytosis Not Reportable 12/06/21 22:30 Macrocytosis Not Reportable 12/06/21 22:30 Spherocytes Not Reportable 12/06/21 22:30 Pappenheimer Bodies Not Reportable 12/06/21 22:30 Sickle Cells Not Reportable 12/06/21 22:30 Target Cells Not Reportable 12/06/21 22:30 Tear Drop Cells Not Reportable 12/06/21 22:30 Ovalocytes Not Reportable 12/06/21 22:30 Helmet Cells Not Reportable 12/06/21 22:30 Lam-Beirne Bodies Not Reportable 12/06/21 22:30 [place] Rings Not Reportable 12/06/21 22:30 [place] Cells Not Reportable 12/06/21 22:30 Bite Cells Not Reportable 12/06/21 22:30 Crenated Cell Not Reportable 12/06/21 22:30 Elliptocytes Not Reportable 12/06/21 22:30 Acanthocytes (Spur) Not Reportable 12/06/21 22:30 Rouleaux Not Reportable 12/06/21 22:30 Hemoglobin C Crystals Not Reportable 12/06/21 22:30 Schistocytes Not Reportable 12/06/21 22:30 Malaria parasites Not Reportable 12/06/21 22:30 Farhan Bodies Not Reportable 12/06/21 22:30 Hem Pathologist Commnt No 12/06/21 22:30 PT 12.2 Sec. (12.2-14.9) 12/07/21 05:34 INR 0.82 (0.87-1.13) L 12/07/21 05:34 APTT 28.2 Sec. (24.2-36.6) 12/07/21 05:34 Sodium 137 mmol/L (137-145) 12/06/21 22:30 Potassium 4.2 mmol/L (3.6-5.0) 12/06/21 22:30 Chloride 101.7 mmol/L (98-107) 12/06/21 22:30 Carbon Dioxide 28 mmol/L (22-30) 12/06/21 22:30 Anion Gap 12 mmol/L 12/06/21 22:30 BUN 13 mg/dL (9-20) 12/06/21 22:30 Creatinine 0.8 mg/dL (0.8-1.3) 12/06/21 22:30 Estimated GFR > 60 ml/min 12/06/21 22:30 BUN/Creatinine Ratio 16 % 12/06/21 22:30 Glucose 108 mg/dL (75-100) H 12/06/21 22:30 Calcium 8.3 mg/dL (8.4-10.2) L 12/06/21 22:30 Total Bilirubin 0.30 mg/dL (0.1-1.2) 12/06/21 22:30 AST 17 units/L (5-40) 12/06/21 22:30 ALT 19 units/L (7-56) 12/06/21 22:30 Alkaline Phosphatase 57 units/L (35-129) 12/06/21 22:30 Total Creatine Kinase 619 units/L (55-170) H 12/07/21 07:59 CK-MB (CK-2) 105.1 ng/mL (0.0-4.0) H 12/07/21 07:59 Troponin T 1.210 ng/mL (0.00-0.029) H* 12/07/21 07:59 Total Protein 5.6 g/dL (6.3-8.2) L 12/06/21 22:30 Albumin 3.5 g/dL (3.9-5) L 12/06/21 22:30 Albumin/Globulin Ratio 1.7 % 12/06/21 22:30 Triglycerides 63 mg/dL (2-149) 12/07/21 04:28 Cholesterol 168 mg/dL (50-199) 12/07/21 04:28 LDL Cholesterol Direct 107 mg/dL (50-130) 12/07/21 04:28 HDL Cholesterol 53 mg/dL (40-59) 12/07/21 04:28 Cholesterol/HDL Ratio 3.16 % 12/07/21 04:28 Lipase 15 units/L (13-60) 12/06/21 22:30 Castro/IV: Voiding Method Toilet Active Medications - Current Medications Current Medications: Generic Name Dose Route Start Last Admin Trade Name Freq PRN Reason Stop Dose Admin Aspirin 325 mg 12/07/21 10:00 12/07/21 16:51 Aspirin Ec 325 Mg Tab PO 325 mg QDAY CIELO Administration Atorvastatin Calcium 80 mg 12/07/21 22:00 Atorvastatin 40 Mg Tab PO QHS CIELO Hydromorphone HCl 0.5 mg 12/07/21 05:44 Hydromorphone 1 Mg/1 Ml Inj IV Q3H PRN Pain , Severe (7-10) Heparin Sodium/Sodium Chloride 25,000 unit in 500 mls @ 20 mls/hr 12/07/21 06:00 12/07/21 09:55 Heparin/ 0.45% Nacl-25,000 Unit/500 Ml IV 12/08/21 05:00 1,000 units/hr TITRATE CIELO 20 mls/hr Administration Protocol 1,000 UNITS/HR Sodium Chloride 500 mls @ 50 mls/hr 12/07/21 11:00 Nacl 0.9% 500 Ml IV 12/07/21 20:59 DIRECT CIELO Losartan Potassium 50 mg 12/07/21 12:00 12/07/21 16:52 Losartan 50 Mg Tab PO 50 mg QDAY CIELO Administration Metoprolol Tartrate 50 mg 12/07/21 12:00 12/07/21 16:51 Metoprolol Tartrate 50 Mg Tab PO 50 mg BID CIELO Administration Morphine Sulfate 2 mg 12/07/21 05:44 12/07/21 16:57 Morphine 2 Mg/1 Ml Inj IV 2 mg Q4H PRN Administration Pain, Moderate (4-6) Nitroglycerin 0.4 mg 12/07/21 05:44 Nitroglycerin 0.4 Mg Tab Subl SL .Q5MIN PRN Chest Pain Nitroglycerin 1 inch 12/07/21 14:00 12/07/21 16:52 Nitroglycerin 2% Oint 1 Gm TP 1 inch BIDNTG CIELO Administration Protocol Pantoprazole Sodium 40 mg 12/07/21 07:30 12/07/21 08:14 Pantoprazole 40 Mg Tab PO 40 mg QDAC CIELO Administration
[2021-12-07] MEDS: NITROGLYCERIN 0.4 MG TAB SUBL SL ONE (20:00)
[2021-12-07] MEDS: METOPROLOL TARTRATE 5 MG/5 ML INJ IV ONE (20:00)
[2021-12-08 04:18] LABS: Basophils % (Auto) 0.6 % (0.0-1.8); Eosinophils # (Auto) 0.1 K/mm3 (0.0-0.4); Eosinophils % (Auto) 1.5 % (0.0-4.3); Hematocrit 37.2 % (35.5-45.6); Hemoglobin 12.2 gm/dl (11.8-15.2); Lymphocytes % (Auto) 40.9 % (13.4-35.0); Mean Corpuscular HGB Conc 33 % (32-34); Mean Corpuscular Volume 90 fl (84-94); Monocytes # (Auto) 0.7 K/mm3 (0.0-0.8); Monocytes % (Auto) 13.8 % (0.0-7.3); Platelet Count 275 K/mm3 (140-440); Red Blood Count 4.12 M/mm3 (3.65-5.03); Red Cell Distribution Width 13.9 % (13.2-15.2)
[2021-12-08 04:26] LABS: BUN/Creatinine Ratio 14; Blood Urea Nitrogen 11 mg/dL (9-20); Hemolysis Index 9
[2021-12-08] MEDS: NITROGLYCERIN 2% OINT 1 GM TP SCH (05:07)
[2021-12-08] MEDS: ASPIRIN EC 325 MG TAB PO SCH (08:10)
[2021-12-08] MEDS ORDERED: SODIUM CHLORIDE 0.9% 500 ML 500 ML ONE (08:16)
[2021-12-08] MEDS ORDERED: SODIUM CHLORIDE 0.9% 500 ML 500 ML IV SCH (09:00)
[2021-12-08] MEDS ORDERED: HEPARIN/NS 5000 UNIT/500ML 1,000 ML IR ONE (09:13)
[2021-12-08] MEDS: fentaNYL 100 MCG/2 ML INJ ONE ×2 (09:39→09:50)
[2021-12-08] MEDS: NITROGLYCERIN SYRINGE 3 ML ONE ×2 (09:39→09:52)
[2021-12-08] MEDS: MIDAZOLAM 2 MG/2 ML INJ ONE ×2 (09:39→09:50)
[2021-12-08] MEDS: LIDOCAINE (2%) 20 MG/1 ML VIAL 20 ML MDV INFILTRATI ONE ×2 (09:39→09:51)
[2021-12-08] MEDS: VERAPAMIL 5 MG/2 ML INJ ONE ×2 (09:40→09:52)
[2021-12-08] MEDS: HEPARIN 10,000 UNITS/10 ML VIAL ONE ×2 (09:40→09:52)
--- NOTE | 2021-12-08 10:34 | Cardiac Catherization Report ---
DATE OF SERVICE: 12/08/2021 LEFT HEART CATHETERIZATION CLINICAL INFORMATION: This is a 51-year-old -Indian gentleman with hypertensive urgency with a non-STEMI with chest pain, shortness of breath. Echocardiogram shows EF of 35 to 40%, he is here for left heart catheterization. The patient was done with moderate, sedation started at 09:50, finished at 10:05. There is 15 minutes of moderate sedation. DESCRIPTION OF PROCEDURE: Procedure was done via the right radial artery, sterile technique and local anesthesia. A 6-Latvian radial sheath inserted. Left system engaged with a JL3.5 catheter. Left main is a large caliber vessel, was patent. LAD is a large caliber vessel that is patent with moderate tortuosity. Diagonal 1, diagonal 2 medium caliber vessel, is patent. Ramus is a large caliber vessel, is patent. Circumflex, large caliber with moderate severe tortuosity. OM1 is a large caliber vessel, patent. RCA engaged with JR4, is a large dominant vessel, moderate tortuosity, patent. PDA, PLV are medium caliber was patent. LV gram done in UKRA[place]IAN and HERNANDES shows moderate LV dysfunction, LVEF 35%, moderate LV dysfunction, LVEDP 20 mmHg, LV is 131, aortic is 131/90. No gradient across the aortic valve. The 5-Latvian catheters all taken over guidewire. A 6-Latvian radial sheath was discontinued. Radial band applied. No hematoma, no bleeding. SUMMARY: Left main, large and patent. LAD is a large caliber and ramus large patent. Circumflex, large caliber vessel. OM1, large caliber and patent with moderate severe tortuosity of vessels. RCA; large, dominant vessel, moderate severe tortuosity vessel, moderate LV dysfunction, LVEDP 20 mmHg. Nonischemic cardiomyopathy. TID: [id number] RECEIPT: [id number] JAIME/JOHNNA/ROSSY
--- NOTE | 2021-12-08 11:30 | Progress Note ---
Assessment and Plan Patient is a 51-year-old male with a past medical history of hypertension and tobacco use who came to the ED with a complaint of chest pain x1 day NSTEMI type II Hypertensive emergency Nonischemic cardiomyopathy History of tobacco use Medical noncompliance Cardiac cath 12/08/2021-left main large and patent. LAD is a large pain. Circumflex large caliber vessel. OMl large caliber and pain with moderate to severe tortuosity of vessel. RCA large dominant vessel, moderate to severe tortuosity. Moderate LV dysfunction. Nonischemic cardiomyopathy Echocardiogram 12/07/2021-EF 35 to 40%. Hypokinesis and septal wall. Right ventricular systolic function is normal. Mild to moderate mitral regurgitation. Trace tricuspid regurgitation. Trace pulmonic regurgitation Plan: Continue metoprolol 50 mg p.o. twice daily and losartan 50 mg p.o. daily for blood pressure control Continue aspirin and Lipitor Cath and echo results noted above. Patient found to have nonischemic cardiomyopathy Plan of care discussed with patient to who verbalized understanding and agreement with plan Patient cardiac status stable for discharge Patient has a follow-up appointment with Dr. Trinidad, [facility] social security specialist, on 12/23/2021 at 10 a.m. at our [place] location. Phone #[phone] Patient seen in conjunction with Dr. Trinidad who agrees with this plan of care - Patient Problems (1) Malignant hypertension Current Visit: Yes Status: Acute (2) Non-STEMI (non-ST elevated myocardial infarction) Current Visit: Yes Status: Acute (3) Tobacco abuse Current Visit: Yes Status: Acute (4) Hypertensive emergency Current Visit: Yes Status: Acute Subjective Date of service: 12/08/21 Principal diagnosis: Type II LA, hypertensive emergency Interval history: Patient for cardiac cath this a.m. Patient not on monitor however previously trending sinus 70s Objective Vital Signs Temp Pulse Pulse Resp BP Pulse Ox 12/08/21 11:19 97.5 F L 18 160/88 12/08/21 07:22 98.3 F 18 148/100 12/08/21 06:00 80 16 97 12/08/21 05:07 79 117/67 12/08/21 03:16 98.0 F 79 16 117/67 97 12/08/21 01:28 79 12/07/21 23:04 98.1 F 80 16 142/87 97 12/07/21 21:57 90 154/96 12/07/21 19:17 97.4 F L 90 16 154/96 97 12/07/21 18:19 80 16 97 12/07/21 16:52 89 12/07/21 16:51 99 H 12/07/21 16:37 98.0 F 91 H 18 181/105 97 12/07/21 15:29 79 12/07/21 11:51 97.9 F 87 18 152/104 95 - Physical Examination General: No Apparent Distress HEENT: Positive: PERRL Neck: Positive: trachea midline Cardiac: Positive: Reg Rate and Rhythm Lungs: Positive: Normal Breath Sounds Neuro: Positive: Grossly Intact Abdomen: Positive: Soft, Active Bowel Sounds Skin: Negative: Rash, Suspicious Lesions, Ulceration Extremities: Present: upper extr. pulses. Absent: edema - Labs and Meds CBC 12/08/21 Range/Units 03:58 WBC 5.0 (4.5-11.0) K/mm3 RBC 4.12 (3.65-5.03) M/mm3 Hgb 12.2 (11.8-15.2) gm/dl Hct 37.2 (35.5-45.6) % Plt Count 275 (140-440) K/mm3 Lymph # (Auto) 2.0 (1.2-5.4) K/mm3 [place] # (Auto) 0.7 (0.0-0.8) K/mm3 Eos # (Auto) 0.1 (0.0-0.4) K/mm3 Baso # (Auto) 0.0 (0.0-0.1) K/mm3 Comprehensive Metabolic Panel 12/08/21 Range/Units 03:58 Sodium 137 (137-145) mmol/L Potassium 4.2 (3.6-5.0) mmol/L Chloride 101.6 (98-107) mmol/L Carbon Dioxide 27 (22-30) mmol/L BUN 11 (9-20) mg/dL Creatinine 0.8 (0.8-1.3) mg/dL Glucose 107 H (75-100) mg/dL Calcium 8.0 L (8.4-10.2) mg/dL - Imaging and Cardiology Echo: report reviewed Cardiac cath: report reviewed - Telemetry EKG Rhythm: Sinus Rhythm - EKG Sinus rhythms and dysrhythmias: sinus rhythm Chamber hypertrophy or enlargement: left ventricular hypertro
[2021-12-08] MEDS: LOSARTAN 50 MG TAB PO SCH (14:14)
[2021-12-08] MEDS: METOPROLOL TARTRATE 50 MG TAB PO SCH (14:15)
[2021-12-08] MEDS: PANTOPRAZOLE 40 MG TAB PO SCH (14:16)
--- NOTE | 2021-12-08 14:23 | Discharge Summary ---
Providers - Providers Date of Admission: 12/07/21 05:44 Date of discharge: 12/08/21 Attending physician: MALINDA NAVARRO 12/07/21 Consult to Cardiac Rehabilitation [CONS] Routine Reason For Exam: Phase 1 12/07/21 05:32 Consult to Physician [CONS] Stat Comment: Consulting Provider: GLEN WALTER Physician Instructions: Reason For Exam: NON STEMI 12/08/21 10:15 Consult to Cardiac Rehabilitation [CONS] Routine Reason For Exam: Cardiac Rehab Evaluation Primary care physician: AKASH VERA Hospitalization Condition: Stable Pertinent studies: Chest x-ray no acute abnormality Echocardiogram; EF 35 to 40%[nonischemic cardiomyopathy] Left heart catheterization; left main large and patent LAD is large caliber and ramus large patent circumflex large caliber vessel OM my large caliber and patent with moderate severe tortuosity RCA large dominant vessel moderate severe tortuous vessel moderate LV dysfunction EF 35 to 40%/ Nonischemic cardiomyopathy Hospital course: --Non-STEMI (non-ST elevated myocardial infarction) Current Visit: Yes Status: Acute Aspirin 325 mg p.o. daily. Lipitor 80 mg p.o. daily. Beta-blockers, RAJANI inhibitors, morphine, Heparin drip as per protocol. Serial cardiac enzymes. Serial EKG Echocardiogram for LV function ejection fraction Cardiology evaluation and recommendations noted and appreciated Possible left heart catheterization tomorrow N.p.o. status --Malignant hypertension Current Visit: Yes Status: Acute Beta-blockers , RAJANI inhibitors , nitrates As needed IV hydralazine Closely monitor blood pressures adjust medications --Ongoing tobacco use Current Visit: Yes Status: Chronic smoking cessation counseling done Advised to quit tobacco use, risks and consequences explained in detail Encouraged to quit tobacco use, discussed different options Including nicotine patch as needed, --History of alcohol abuse Current Visit: Yes Status: Chronic Strongly advised to quit alcohol intake Monitor for any withdrawal symptoms And treat with CIWA as needed --Obesity; BMI 31.5 Advised diet modification, exercise as tolerated And weight reduction when medically stable Patient verbalized understanding --Advance care planning;+ 32 minutes Discussed patient's condition, diagnosis discussed, discussed abnormal tests And reports, discussed treatment plan, I discussed with the patient cardiology evaluation As well as recommendations, I discussed possible left heart cath, also discussed smoking cessation Advised to quit alcohol intake, discussed discharge planning Patient verbalized understanding ; Stable at discharge Final Discharge Diagnosis (Prints w/discharge instructions): Non-ST elevation MN. Status post heart cath normal coronaries new onset nonischemic cardiomyopathy. Malignant hypertension well-controlled. ongoing tobacco use/smoking cessation counseling. History of alcohol use/advised to quit. Obesity/BMI 31.5 Time spent for discharge: 40 min Exam - Constitutional Vitals: Temp Pulse Resp BP Pulse Ox 97.5 F L 70 18 149/85 97 12/08/21 11:19 12/08/21 14:15 12/08/21 11:19 12/08/21 14:14 12/08/21 06:00 Plan Additional Instructions: Dr. Trinidad, [facility] network diagnostic support specialist, on 12/23/2021 at 10 a.m. at our [place] location. Phone #[phone]. Advised smoking cessation. Advised to quit recreational drug use. If you have worsening symptoms contact MD or go to the nearest emergency room as needed. Advised to follow primary care physician 3 to 5 days. 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 Strongly advised to comply with medications, diet, follow-up visits as scheduled Follow up with: AKASH VERA MD [Primary Care Provider] - 3-5 Days MIAN TRINIDAD MD [Staff Physician] - 12/23/21 10:00 am Prescriptions: amLODIPine [Norvasc] 5 mg PO DAILY #30 tab Losartan [Cozaar] 50 mg PO QDAY #30 tablet Aspirin EC [Halfprin EC] 81 mg PO QDAY #30 tablet AtorvaSTATin [Lipitor] 80 mg PO QHS #30 tablet Metoprolol [Lopressor TAB] 50 mg PO BID #60 tablet Pantoprazole [Protonix TAB] 40 mg PO QDAC #20 tablet
[2021-12-08 17:28] VITALS: BP 142/92
--- NOTE | 2021-12-09 09:16 | Electrocardiograph Report ---
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
[2021-12-09] MEDS ORDERED: ASPIRIN EC 81 MG TAB PO SCH (10:00)
== END 2021-12-08 17:00 | disposition home or self-care (01) | DRG 281 ==
LOC: ED 21:42 → 4A 12-07 05:44
PROVIDERS: ADMIT Hospitalist; ATTEND Internal Medicine
PROC: 4A023N7 Measurement of Cardiac Sampling and Pressure, Left Heart, Percutaneous Approach (ICD-10-PCS; principal; 2021-12-08)
PROC: B2111ZZ Fluoroscopy of Multiple Coronary Arteries using Low Osmolar Contrast (ICD-10-PCS; 2021-12-08)
PROC: B2151ZZ Fluoroscopy of Left Heart using Low Osmolar Contrast (ICD-10-PCS; 2021-12-08)
DX: I21.4 Non-ST elevation (NSTEMI) myocardial infarction (principal); I16.1 Hypertensive emergency; I42.8 Other cardiomyopathies; I10 Essential (primary) hypertension; E66.9 Obesity, unspecified; Z68.31 Body mass index [BMI] 31.0-31.9, adult; Z72.0 Tobacco use; F10.11 Alcohol abuse, in remission; Z91.14 Patient's other noncompliance with medication regimen
CPT/HCPCS: 36415; 71046; 80048; 80053; 80061; 82550; 82553; 82962; 83690; 84484; 85007; 85025; 85520; 85610; 85730; 93005; 93306; 93458; 99406; G0378; J1815; J3490; J9280; C1894; C8929; J1644; J2250; J2270; J2405; J3010; J7040; Q9967